=== PATIENT | male | born 1980 | race Two or more races ===

== ENCOUNTER 2024-09-19 18:46 | Inpatient (IN) | payer OTHER ==
[~2024-09-19] VITALS: Ht 160 cm; Wt 84.8 kg
[2024-09-19 19:19] LABS: Basophils # (auto) 0.3 10 ^3/uL (0-0.2); Basophils % (auto) 1.5 % (0.0-2.0); Eosinophils # (auto) 0.6 10 ^3/uL (0-0.8); Eosinophils % (auto) 3.3 % (0.0-7.0); Hematocrit 43.2 % (41.0-53.0); Hemoglobin 13.9 g/dL (13.5-17.5); Lymphocytes # (auto) 1.5 10 ^3/uL (0.4-5.4); Lymphocytes % (auto) 8.7 % (10.0-50.0); Mean Corpuscular Hemoglobin 27.4 pg (28.0-32.0); Mean Corpuscular Hgb Conc. 32.1 g/dL (32.0-36.0); Mean Corpuscular Volume 85.2 fL (80.0-100.0); Monocytes # (auto) 0.9 10 ^3/uL (0-1.3); Monocytes % (auto) 5.2 % (0.0-12.0); Neutrophils % (auto) 81.3 % (37.0-80.0); Platelet Count (auto) 423 10^3/uL (140-450); Red Blood Cells 5.07 10^6/uL (4.5-5.90); Red Cell Distribution Width 17.8 % (11.8-14.3); White Blood Cell 17.3 10^3/uL (4.4-10.8)
--- NOTE | 2024-09-19 19:25 | ED.PDOC ---
History of Present Illness HPI Comments 44 y/o M is BIBA for c/o chest pain that began 3 hours ago, today. He describes it as pressure-like in quality. EMS states on giving the patient NTG en route, with no improvement or relief to his pain. Patient denies any shortness of breath, palpitations, dizziness, lightheadedness, or further associated symptoms or modifiers at this time. Signs were stable at arrival. 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 Past Medical History PAST MEDICAL HISTORY: CKF Surgical History: Denies all surgeries Family History Family History: Reviewed,noncontributory to illness, No family hx of Cancer, No family hx of DM, No family hx of Heart minoo, No family hx of HTN, No family hx ofKidney minoo, No family hx of Liver minoo, No family hx of Lung minoo, No family hx of Stroke Social History Smoker: Non-Smoker Alcohol: Denies ETOH Use Drugs: Denies Drug Use Lives In: Home Constitutional: denies: chills, diaphoresis, fatigue, fever, malaise, sweats, weakness, others EENTM: denies: blurred vision, double vision, ear bleeding, ear discharge, ear drainage, ear pain, ear ringing, eye pain, eye redness, hearing loss, mouth pain, mouth swelling, nasal discharge, nose bleeding, nose congestion, nose pain, photophobia, tearing, throat pain, throat swelling, voice changes, others Respiratory: denies: cough, hemoptysis, orthopnea, SOB at rest, shortness of breath, SOB with excertion, stridor, wheezing, others Cardiovascular: reports: chest pain; denies: dizzy spells, diaphoresis, Dyspnea on exertion, edema, irregular heart beat, left arm pain, lightheadedness, palpitations, PND, syncope, others Gastrointestinal: denies: abdomen distended, abdominal pain, blood streaked bowels, constipated, diarrhea, dysphagia, difficulty swallowing, hematemesis, melena, nausea, poor appetite, poor fluid intake, rectal bleeding, rectal pain, vomiting, others Genitourinary: denies: burning, dysuria, flank pain, frequency, hematuria, incontinence, penile discharge, penile sore, pain, testicle pain, testicle swelling, urgency, others Neurological: denies: dizziness, fainting, headache, left sided numbness, left sided weakness, numbness, paresthesia, pre-existing deficit, right sided numbness, right sided weakness, seizure, speech problems, tingling, tremors, weakness, others Musculoskeletal: denies: back pain, gout, joint pain, joint swelling, muscle pain, muscle stiffness, neck pain, others Integumetry: denies: bruises, change in color, change in hair/nails, dryness, laceration, lesions, lumps, rash, wounds, others Allergic/Immunocompromised: denies: Difficulty Healing, Frequent Infections, Hives, Itching, others Hematologic/Lymphatic: denies: anemia, blood clots, easy bleeding, easy bruising, swollen glands, others Endocrine: denies: excessive hunger, excessive sweating, excessive thirst, excessive urination, flushing, intolerance to cold, intolerance to heat, unexplained weight gain, unexplained weight loss, others Psychiatric: denies: anxiety, bipolar disorder, depression, hopeless, panic disorder, schizophrenia, sleepless, suicidal, others All Other Systems: Reviewed and Negative (as per HPI) Physical Exam General Appearance: Moderate Distress (Moderate distress due to generalized chest pain concerns.), Normal HEENT: Normal ENT Inspection, Pharynx Normal, TMs Normal Neck: Full Range of Motion, Non-Tender, Normal, Normal Inspection Respiratory: Other (Relatively unremarkable auscultation bilateral lung garcia. Possible mild rhonchi appreciated right middle lobe) Cardiovascular: No Edema, No JVD, No Murmur, No Gallop, Normal Peripheral Pulses, Regular Rate/Rhythm Breast Exam: Deferred Gastrointestinal: No Organomegaly, Non Tender, No Pulsatile Mass, Normal Bowel Sounds, Soft Genitalia: Deferred Pelvic: Deferred Rectal: Deferred Extremities: No calf tenderness, Normal capillary refill, Normal inspection, No rmal range of motion, Non-tender, No pedal edema Neurologic: Alert, No Motor Deficits, Normal Affect, Normal Mood, No Sensory Deficits Cerebellar Function: Normal Reflexes: Normal Skin: Dry, Normal Color, Warm Lymphatic: No Adenopathy Was a procedure done? Was a procedure done?: No Differential Dx Considerations may include: OH, PE, ACS, angina, anxiety, musculoskeletal pain, among others X-Ray, Labs, Meds, VS Vital Signs Date Time Temp Pulse Resp B/P (MAP) Pulse Ox O2 Delivery O2 Flow Rate FiO2 09/19/24 23:28 132/53 09/19/24 21:25 97.5 70 18 139/77 (97) 98 97.5 09/19/24 21:25 97 Room Air* 0 21 09/19/24 18:49 97.7 78 18 159/77 (104) 97 97.7 09/19/24 18:48 77 Lab Test 09/19/24 19:48 09/19/24 18:55 Range/Units Troponin I High Sensitivity 8 8 </=54 ng/L White Blood Count 17.3 H 4.4-10.8 10^3/uL Red Blood Count 5.07 4.5-5.90 10^6/uL Hemoglobin 13.9 13.5-17.5 g/dL Hematocrit 43.2 41.0-53.0 % Mean Corpuscular Volume 85.2 80.0-100.0 fL Mean Corpuscular Hemoglobin 27.4 L 28.0-32.0 pg Mean Corpuscular Hemoglobin Concent 32.1 32.0-36.0 g/dL Red Cell Distribution Width 17.8 H 11.8-14.3 % Platelet Count 423 140-450 10^3/uL Mean Platelet Volume 8.4 6.9-10.8 fL Neutrophils (%) (Auto) 81.3 H 37.0-80.0 % Lymphocytes (%) (Auto) 8.7 L 10.0-50.0 % Monocytes (%) (Auto) 5.2 0.0-12.0 % Eosinophils (%) (Auto) 3.3 0.0-7.0 % Basophils (%) (Auto) 1.5 0.0-2.0 % Neutrophils # (Auto) 14.0 H 1.6-8.6 10 ^3/uL Lymphocytes # (Auto) 1.5 0.4-5.4 10 ^3/uL Monocytes # (Auto) 0.9 0-1.3 10 ^3/uL Eosinophils # (Auto) 0.6 0-0.8 10 ^3/uL Basophils # (Auto) 0.3 H 0-0.2 10 ^3/uL Nucleated Red Blood Cells 0.0 % Sodium Level 137 136-145 mmol/L Potassium Level 3.8 3.5-5.1 mmol/L Chloride Level 102 98-107 mmol/L Carbon Dioxide Level 29 20-31 mmol/L Anion Gap 6 5-15 Blood Urea Nitrogen 9 9-23 mg/dL Creatinine 0.59 L 0.700-1.30 mg/dL Glomerular Filtration Rate Calc 124 >90 mL/min BUN/Creatinine Ratio 15.3 10.0-20.0 Serum Glucose 241 H 74-106 mg/dL Calcium Level 9.5 8.7-10.4 mg/dL Total Bilirubin 0.8 0.2-1.0 mg/dL Aspartate Amino Transferase (AST) 17 13-40 U/L Alanine Aminotransferase (ALT) 15 7-40 U/L Alkaline Phosphatase 180 H 46-116 U/L B-Type Natriuretic Peptide 546.66 0-100 pg/mL Total Protein 7.2 5.7-8.2 g/dL Albumin 4.2 3.2-4.8 g/dL Lipase 30 12-53 U/L Plasma/Serum Blood Alcohol < 3.0 <10 mg/dL Current Medications Medications (Trade) Dose Ordered Sig/Evert Route Start Time Stop Time Status Last Admin Furosemide (Lasix Injection) 40 mg ONCE ONCE IV 09/19/24 22:30 09/19/24 22:31 DC 09/19/24 23:28 Sodium Chloride 1,000 ml @ 150 mls/hr Q6H40M ONCE IV 09/19/24 22:30 09/20/24 05:09 09/19/24 23:28 Piperacillin Sod/ Tazobactam Sod 100 ml @ 100 mls/hr ONCE ONCE IV 09/19/24 22:30 09/19/24 23:29 DC 09/19/24 23:29 X-Ray, Labs, Meds, VS Comment All studies performed the ED were evaluated by me personally. Urinalysis was pending at time of this note. Serum laboratories revealed a significant leukocytosis, hyperglycemia, elevated alkaline loss and what appears to be an acute CHF exacerbation. Patient denied any history of CHF. EKG revealed a sinus rhythm with a rate of 77. Possible left atrial enlargement as well as left ventricular hypertrophy. Patient has possible ischemia in diffuse leads. AK interval 148 and QT interval 440. Chest x-ray was unremarkable for any consolidation or intrapulmonary concerns. Patient will be admitted for his CHF concerns as well as currently un-sourced leukocytosis. Time of 1ST Reevaluation: 23:36 Reevaluation 1ST: Improved Consultation: PCP, Cardiology Patient Education/Counseling: Diagnosis, Treatment Family Education/Counseling: Diagnosis, Treatment, No Family Present Departure 1 Departure Time of Disposition: 23:36 Impression: Primary Impression: Acute exacerbation of CHF (congestive heart failure) Additional Impressions: Leukocytosis Hyperglycemia Elevated alkaline phosphatase level Disposition: ADMITTED INPATIENT Condition: Stable Discharged With: Self Critical Care Note Critical Care Time?: No Stability Stability form required: No Heart Score Heart Score: Heart Score Response (Comments) Value History Moderate Suspicious 1 EKG Normal 0 Age <45 0 Risk Factors 1 or 2 risk factors 1 Troponin Normal limit 0 Total 2 I personally scribed for AIDEN ELLIS PAC ([email or web address]) on 09/19/24 at 19:25. Electronically submitted by Aki Santoyo ([email or web address]). AIDEN ELLIS PAC Sep 19, 2024 19:25
[2024-09-19 20:12] LABS: Alanine Aminotransferase 15 U/L (7-40); Albumin 4.2 g/dL (3.2-4.8); Anion Gap 6 (5-15); Aspartate Aminotransferase 17 U/L (13-40); BUN/Creatinine Ratio 15.3 (10.0-20.0); Blood Urea Nitrogen 9 mg/dL (9-23); Calcium 9.5 mg/dL (8.7-10.4); Carbon Dioxide 29 mmol/L (20-31); Chloride 102 mmol/L (98-107); Potassium 3.8 mmol/L (3.5-5.1); Sodium 137 mmol/L (136-145); Total Protein 7.2 g/dL (5.7-8.2)
[2024-09-19 20:13] LABS: Bilirubin, Total 0.8 mg/dL (0.2-1.0)
[2024-09-19 20:14] LABS: Alkaline Phosphatase 180 U/L (46-116); Blood Alcohol < 3.0 mg/dL (<10); Glucose 241 mg/dL (74-106)
[2024-09-19 20:24] LABS: Lipase 30 U/L (12-53)
[2024-09-19] MEDS: HYDROMORPHONE HCL 1 MG/ML INJ IV ONE (20:58)
[2024-09-19 21:25] VITALS: O2SAT 97
--- NOTE | 2024-09-19 23:16 | DVH ---
CHEST RADIOGRAPH Indication: Shortness of breath Technique: Single frontal view of the chest was obtained Comparison: None FINDINGS: Lines and Tubes: None Lungs: Clear Pleura: No effusion. No pneumothorax. Cardiomediastinal contours: Unremarkable Bones: Unremarkable IMPRESSION: Clear lungs.
[2024-09-19] MEDS: FUROSEMIDE 40 MG/4 ML VIAL IV ONE (23:28)
[2024-09-19] MEDS: SODIUM CHLORIDE 0.9% 1,000 ML IV ONE (23:28)
[2024-09-19] MEDS: PIPERACILLIN-TAZOB 3.375GM 100 ML IV ONE (23:29)
[2024-09-20] VITALS (11 sets, daily range): BP systolic 132–165; BP diastolic 53–77; PULSE 72–81; RESP 16–18; TEMP 36.7; O2SAT 93–99
[2024-09-20] MEDS ORDERED: ONDANSETRON HCL 4 MG/2 ML VIAL IV PRN (00:15)
[2024-09-20] MEDS ORDERED: ZOLPIDEM TARTRATE 5 MG TAB PO PRN (00:15)
[2024-09-20] MEDS ORDERED: DEXTROSE (50%) 50ML SYRG IV PRN (00:15)
[2024-09-20] MEDS ORDERED: LORazepam 0.5 MG TAB PO PRN (00:15)
[2024-09-20] MEDS ORDERED: MORPHINE SULFATE 4 MG/ML SYR/VIAL IV PRN (00:15)
[2024-09-20] MEDS ORDERED: NITROGLYCERIN 0.4 MG SL TAB SL PRN (00:15)
[2024-09-20] MEDS ORDERED: ACETAMINOPHEN 325 MG TAB PO PRN (00:15)
[2024-09-20] MEDS ORDERED: IPRATROPIUM BROM 0.5 MG/2.5ML INH SOL NEB PRN (00:30)
--- NOTE | 2024-09-20 00:36 | DVHHP2 ---
History of Present Illness Reason for Visit: chest pain History of Present Illness 44-year-old male with a past medical history of CHF also stated kidney failure and diabetes comes to the ED for evaluation of shortness of breath and chest pain patient states that he has not been on his medication for awhile since he recently moved from [place] but recently started his medication again after was sent up about 2 days ago but noticed that he still can not catch his breath and was feeling pretty weak came into the ED for further evaluation and management we will be admitted for further care Cardiovascular: CHF Pulmonary: COPD Review of Systems Constitutional: Yes: Weakness; No: Fever, Chills, Sweats, Malaise, Other Eyes: No: Pain, Vision change, Conjunctivae inflammation, Eyelid inflammation, Other, Redness ENT: No: Ear pain, Ear discharge, Nose pain, Nose discharge, Nose congestion, Mouth pain, Mouth swelling, Throat pain, Throat swelling, Other Respiratory: Shortness of breath, SOB with excertion; No: Cough, Dry, Wheezing, Hemoptysis, Pleuritic Pain, Sputum, Wheezing, Other Cardiovascular: Chest Pain, Palpitations; No: Orthopnea, Paroxysmal Noc. Dyspnea, Edema, Lt Headedness, Other Gastrointestinal: No: Nausea, Vomiting, Abdominal Pain, Diarrhea, Constipation, Melena, Hematochezia, Other Genitourinary: No Dysuria, No Frequency, No Incontinence, No Hematuria, No Retention, No Other Musculoskeletal: No: other, neck pain, shoulder pain, arm pain, back pain, hand pain, leg pain, foot pain Skin: No: Rash, Lesions, Jaundice, Bruising, Other Neurological: Weakness; No: Numbness, Incoordination, Change in speech, Confusion, Seizures, Other Medications Current Medications Medications Dose Ordered Sig/Evert Route Start Time Stop Time Status Last Admin Dose Admin Aspirin 81 mg DAILY PO 09/20/24 10:00 UNV Atorvastatin Calcium 40 mg HS PO 09/20/24 22:00 UNV Carvedilol 6.25 mg Q12HR PO 09/20/24 10:00 UNV Losartan Potassium 12.5 mg DAILY PO 09/20/24 10:00 UNV Morphine Sulfate 2 mg Q30MP PRN IV 09/20/24 00:15 UNV Acetaminophen 650 mg Q6HP PRN PO 09/20/24 00:15 UNV Zolpidem Tartrate 5 mg QHSP PRN PO 09/20/24 00:15 UNV Lorazepam 0.5 mg Q6HP PRN PO 09/20/24 00:15 UNV Docusate Sodium 100 mg DAILY PO 09/20/24 10:00 UNV Enoxaparin Sodium 60 mg Q12HR SC 09/20/24 10:00 UNV Nitroglycerin 0.4 mg Q5MINP PRN SL 09/20/24 00:15 UNV Ondansetron HCl 4 mg Q4HP PRN IV 09/20/24 00:15 UNV Diagnostic Test (Pha) 1 strip ACHS 09/20/24 07:00 UNV Insulin Human Regular HS SC 09/20/24 22:00 UNV Insulin Human Regular AC SC 09/20/24 07:00 UNV Dextrose 50 ml UD PRN IV 09/20/24 00:15 UNV Furosemide 40 mg DAILY IV 09/20/24 10:00 UNV Albuterol 2.5 mg Q4HPRN NEB 09/20/24 02:00 UNV Ipratropium [place] 0.5 mg Q4HP PRN NEB 09/20/24 00:30 UNV Exam Vital Signs Vital Signs Date Time Temp Pulse Resp B/P (MAP) Pulse Ox O2 Delivery O2 Flow Rate FiO2 09/19/24 23:28 132/53 09/19/24 21:25 97.5 70 18 98 97.5 09/19/24 21:25 Room Air* 0 21 Exam General Appearance: Moderate Distress (Moderate distress due to generalized chest pain concerns.), Normal HEENT: Normal ENT Inspection, Pharynx Normal, TMs Normal Neck: Full Range of Motion, Non-Tender, Normal, Normal Inspection Respiratory: Other (Relatively unremarkable auscultation bilateral lung garcia. Possible mild rhonchi appreciated right middle lobe) Cardiovascular: No Edema, No JVD, No Murmur, No Gallop, Normal Peripheral Pulses, Regular Rate/Rhythm Breast Exam: Deferred Gastrointestinal: No Organomegaly, Non Tender, No Pulsatile Mass, Normal Bowel Sounds, Soft Genitalia: Deferred Pelvic: Deferred Rectal: Deferred Extremities: No calf tenderness, Normal capillary refill, Normal inspection, Normal range of motion, Non-tender, No pedal edema Neurologic: Alert, No Motor Deficits, Normal Affect, Normal Mood, No Sensory Deficits Cerebellar Function: Normal Reflexes: Normal Skin: Dry, Normal Color, Warm Lymphatic: No Adenopathy Labs/Xrays Labs Test 09/19/24 19:48 09/19/24 18:55 Range/Units Troponin I High Sensitivity 8 </=54 ng/L White Blood Count 17.3 H 4.4-10.8 10^3/uL Red Blood Count 5.07 4.5-5.90 10^6/uL Hemoglobin 13.9 13.5-17.5 g/dL Hematocrit 43.2 41.0-53.0 % Mean Corpuscular Volume 85.2 80.0-100.0 fL Mean Corpuscular Hemoglobin 27.4 L 28.0-32.0 pg Mean Corpuscular Hemoglobin Concent 32.1 32.0-36.0 g/dL Red Cell Distribution Width 17.8 H 11.8-14.3 % Platelet Count 423 140-450 10^3/uL Mean Platelet Volume 8.4 6.9-10.8 fL Neutrophils (%) (Auto) 81.3 H 37.0-80.0 % Lymphocytes (%) (Auto) 8.7 L 10.0-50.0 % Monocytes (%) (Auto) 5.2 0.0-12.0 % Eosinophils (%) (Auto) 3.3 0.0-7.0 % Basophils (%) (Auto) 1.5 0.0-2.0 % Neutrophils # (Auto) 14.0 H 1.6-8.6 10 ^3/uL Lymphocytes # (Auto) 1.5 0.4-5.4 10 ^3/uL Monocytes # (Auto) 0.9 0-1.3 10 ^3/uL Eosinophils # (Auto) 0.6 0-0.8 10 ^3/uL Basophils # (Auto) 0.3 H 0-0.2 10 ^3/uL Nucleated Red Blood Cells 0.0 % Sodium Level 137 136-145 mmol/L Potassium Level 3.8 3.5-5.1 mmol/L Chloride Level 102 98-107 mmol/L Carbon Dioxide Level 29 20-31 mmol/L Anion Gap 6 5-15 Blood Urea Nitrogen 9 9-23 mg/dL Creatinine 0.59 L 0.700-1.30 mg/dL Glomerular Filtration Rate Calc 124 >90 mL/min BUN/Creatinine Ratio 15.3 10.0-20.0 Serum Glucose 241 H 74-106 mg/dL Calcium Level 9.5 8.7-10.4 mg/dL Total Bilirubin 0.8 0.2-1.0 mg/dL Aspartate Amino Transferase (AST) 17 13-40 U/L Alanine Aminotransferase (ALT) 15 7-40 U/L Alkaline Phosphatase 180 H 46-116 U/L B-Type Natriuretic Peptide 546.66 0-100 pg/mL Total Protein 7.2 5.7-8.2 g/dL Albumin 4.2 3.2-4.8 g/dL Lipase 30 12-53 U/L Plasma/Serum Blood Alcohol < 3.0 <10 mg/dL Assessment/Plan Assessment/Plan Admit to telemetry Acute on chronic CHF exacerbation Chest pain protocol CHF management IV Lasix Suspected pneumonia P.r.n. breathing treatments IV antibiotics started in the ED we will continue Hyperglycemia with suspected diabetes Insulin sliding scale protocol Plan discussed with: Patient My Orders Orders - FLORY OBREGON MD Procedure Category Date Status Time Admit ADMIT 09/20/24 Transmitted 00:13 Code Status CODE 09/20/24 Transmitted 00:13 Cardiac DIET 09/20/24 Transmitted Diet-2gna,Lofat,Lochol Breakfast Aspirin Tablet PHA 09/20/24 Logged 10:00 Atorvastatin (Lipitor) PHA 09/20/24 Logged 22:00 Carvedilol Tablet PHA 09/20/24 Logged (Coreg Tablet) 10:00 Losartan Tablet PHA 09/20/24 Logged (Cozaar Tablet) 10:00 Morphine Sulfate PHA 09/20/24 Logged Injection 00:15 Acetaminophen Tablet PHA 09/20/24 Logged (Tylenol Tablet) 00:15 Zolpidem Tartrate PHA 09/20/24 Logged (Ambien) 00:15 Lorazepam Tablet PHA 09/20/24 Logged (Ativan Tablet) 00:15 Docusate Sodium PHA 09/20/24 Logged Capsule (Colace 10:00 Complete Blood Count LAB 09/21/24 Verified 04:00 Basic Metabolic Panel LAB 09/21/24 Verified 04:00 Echo 2d Mode Cardiac US 09/20/24 Logged DOP 00:13 Enoxaparin Sodium PHA 09/20/24 Logged (Lovenox) 10:00 Nitroglycerin PHA 09/20/24 Logged Sublingual (Ntrostat 00:15 Ondansetron Hcl PHA 09/20/24 Logged (Zofran) 00:15 Electrocardigram EKG 09/20/24 Logged 00:13 Alum & Mag PHA 09/20/24 Logged Hydrox-Simethicone 00:15 Troponin-I Hs LAB 09/20/24 Logged 00:13 Cardiac [place] 09/20/24 In Process Rehabilitation - Outpa Stat Ekg For Chest [place] 09/20/24 In Process Pain 00:13 Notify Md Of Changes [place] 09/20/24 In Process From Base 00:13 Vulcanizer Rubber Plate For [place] 09/20/24 In Process 24 Hours 00:13 Oxygen By Nasal RT 09/20/24 Transmitted Cannula 00:13 Troponin-I Hs LAB 09/20/24 Logged 01:13 Troponin-I Hs LAB 09/20/24 Logged 03:13 Glucose Blood PHA 09/20/24 Logged (Accu-Chek Comfort 07:00 Insulin R (Human) PHA 09/20/24 Logged (Insulin R) 22:00 Insulin R (Human) PHA 09/20/24 Logged (Insulin R) 07:00 Dextrose 50% Syringe PHA 09/20/24 Logged 00:15 Furosemide Injection PHA 09/20/24 Logged (Lasix Injection) 10:00 Albuterol Medneb PHA 09/20/24 Logged (Ventolin Medneb) 02:00 Ipratropium Medneb PHA 09/20/24 Logged (Atrovent Medneb) 00:30 Med Neb Initial RT 09/20/24 Logged Treatment 00:19 Date of Service: Sep 20, 2024 Billing Provider: FLORY OBREGON MD Common Visit Codes: [id number] INP/OBS CARE (HIGH) FLORY OBREGON MD Sep 20, 2024 00:36
[2024-09-20 00:52] LABS: Urine Bacteria None Seen /hpf (None Seen)
[2024-09-20 01:11] LABS: Urine Blood Negative /uL (Negative); Urine Clarity Clear (Clear); Urine Color Light-Yellow (Yellow); Urine Protein, UAD Negative (Negative); Urine Specific Gravity 1.013 (1.001-1.035); Urine Squamous Epithelial Cell None Seen /hpf (<5); Urine Urobilinogen Normal (Negative); Urine WBC < 1 /HPF (0-3); Urine pH 6.5 (5.0-9.0)
[2024-09-20 01:25] LABS: Amphetamine Screen, Urine Neg (NEGATIVE); Barbiturate Scree,Urine Neg (NEGATIVE); Benzodiazephine Screen, Urine Neg (NEGATIVE); Cannabinoid Screen, Urine Pos (NEGATIVE); Cocaine Screen, Urine Neg (NEGATIVE); Opiate Scree,Urine Neg (NEGATIVE); Phencyclidine Screen, Urine Neg (NEGATIVE)
[2024-09-20] MEDS ORDERED: ALBUTEROL SULF 2.5 MG/0.5ML(0.5%) NEB SOLN NEB SCH (02:00)
[2024-09-20] MEDS: MAALOX PLUS or MAALOX 30 ML PO ONE (03:59)
[2024-09-20] MEDS ORDERED: ALBUTEROL SULF 2.5 MG/0.5ML(0.5%) NEB SOLN NEB PRN (04:15)
[2024-09-20] MEDS: ACCU-CHEK COMFORT CURVE STRIP VI SCH (07:00)
[2024-09-20] MEDS: FUROSEMIDE 40 MG/4 ML VIAL IV SCH (08:35)
[2024-09-20] MEDS: LOSARTAN POTASSIUM 25 MG TAB PO SCH (08:35)
[2024-09-20] MEDS: CARVEDILOL 3.125 MG TAB PO SCH (08:35)
[2024-09-20] MEDS: InsuLIN REG 1unit/0.01ml Soln (100units/ml) SC SCH (08:42)
[2024-09-20] MEDS: DOCUSATE SOD 100 MG CAP PO SCH (08:42)
[2024-09-20] MEDS: ASPirin 81 mg TAB PO SCH (08:42)
[2024-09-20] MEDS: ENOXAPARIN SOD 80 MG/0.8ML SYRINGE SC SCH (11:06)
--- NOTE | 2024-09-20 14:22 | DVHSR ---
APPROVED REPORT EXAM: Two-dimensional and M-mode echocardiogram with Doppler and color Doppler. Blood Pressure: 165/63 mmHg INDICATION Chest Pain RISK FACTORS Obesity: Height: 5' 3", Weight: 186 DIMENSIONS LVDd4.9 (3.8-5.7cm)LA (2D)4.7 (1.9-4.0cm)Aortic Root3.0 (2.0-3.7cm) LVDs3.8 (2.5-4.0cm)LA (MM) (1.9-4.0cm)Aortic Cusp Exc1.8 (1.5-2.0cm) EF (%) 50.0 (55-70%)Rt. Atrium4.0 (1.9-4.0cm)Asc. Aorta cm IVSd1.2 (0.7-1.1cm)RV (D) (1.8-2.4cm) PWd1.4 (0.7-1.1cm) Mitral Valve MitralMitral Stenosis E wave1.00m/sMV Mean GR.mmHg A wave0.70m/sMV Peak GR.mmHg E/A ratio1.42D MVAcm2 Aortic Valve Aortic ValveAortic Stenosis V10.90m/Rachelle Mean GR.4mmHg V21.40m/Rachelle Peak GR.8mmHg LVOT Diameter2.2 (1.8-2.4cm)Doppler AVA2.44cm2 Pulmonic Valve V20.60m/s Tricuspid Valve TR Velocity2.30m/s [id number] Conclusion LV EF IS 55% NORMAL VALVES NORMAL RV FUNCTION NO EFFUSION
[2024-09-20] MEDS ORDERED: AUG875T PO (18:12)
--- NOTE | 2024-09-20 18:15 | DVHDS2 ---
Discharge Summary Date of Admission Sep 20, 2024 at 00:13 Date of Discharge: Sep 20, 2024 Labs/Diagnostic Data: Laboratory Results Test 09/20/24 17:03 09/20/24 15:33 09/20/24 03:26 09/20/24 00:37 POC Glucose 152 mg/dl (70-106) Hemoglobin A1c 8.9 % A1C (<5.7) Troponin I High Sensitivity 12 ng/L (</=54) Urine Color Light-yellow (Yellow) Urine Clarity Clear (Clear) Urine pH 6.5 (5.0-9.0) Urine Specific [place] 1.013 (1.001-1.035) Urine Protein Negative (Negative) Urine Ketones Trace (Negative) Urine Blood Negative /uL (Negative) Urine Nitrite Negative (Negative) Urine Bilirubin Negative (Negative) Urine Urobilinogen Normal mg/dL (Negative) Urine Leukocyte Esterase Negative /uL (Negative) Urine RBC 1 /hpf (0 - 3) Urine Microscopic WBC < 1 /HPF (0-3) Urine Squamous Epithelial Cells None seen /hpf (<5) Urine Bacteria None seen /hpf (None Seen) Urine Glucose 4+ mg/dL (Normal) Urine Opiates Screen Neg (NEGATIVE) Urine Fentanyl Screen Neg (NEGATIVE) Urine Barbiturates Screen Neg (NEGATIVE) Urine Phencyclidine Screen Neg (NEGATIVE) Urine Amphetamines Screen Neg (NEGATIVE) Urine Benzodiazepines Screen Neg (NEGATIVE) Urine Cocaine Screen Neg (NEGATIVE) Urine Cannabinoids Screen Pos (NEGATIVE) Test 09/19/24 18:55 White Blood Count 17.3 10^3/uL (4.4-10.8) Red Blood Count 5.07 10^6/uL (4.5-5.90) Hemoglobin 13.9 g/dL (13.5-17.5) Hematocrit 43.2 % (41.0-53.0) Mean Corpuscular Volume 85.2 fL (80.0-100.0) Mean Corpuscular Hemoglobin 27.4 pg (28.0-32.0) Mean Corpuscular Hemoglobin Concent 32.1 g/dL (32.0-36.0) Red Cell Distribution Width 17.8 % (11.8-14.3) Platelet Count 423 10^3/uL (140-450) Mean Platelet Volume 8.4 fL (6.9-10.8) Neutrophils (%) (Auto) 81.3 % (37.0-80.0) Lymphocytes (%) (Auto) 8.7 % (10.0-50.0) Monocytes (%) (Auto) 5.2 % (0.0-12.0) Eosinophils (%) (Auto) 3.3 % (0.0-7.0) Basophils (%) (Auto) 1.5 % (0.0-2.0) Neutrophils # (Auto) 14.0 10 ^3/uL (1.6-8.6) Lymphocytes # (Auto) 1.5 10 ^3/uL (0.4-5.4) Monocytes # (Auto) 0.9 10 ^3/uL (0-1.3) Eosinophils # (Auto) 0.6 10 ^3/uL (0-0.8) Basophils # (Auto) 0.3 10 ^3/uL (0-0.2) Nucleated Red Blood Cells 0.0 % Sodium Level 137 mmol/L (136-145) Potassium Level 3.8 mmol/L (3.5-5.1) Chloride Level 102 mmol/L (98-107) Carbon Dioxide Level 29 mmol/L (20-31) Anion Gap 6 (5-15) Blood Urea Nitrogen 9 mg/dL (9-23) Creatinine 0.59 mg/dL (0.700-1.30) Glomerular Filtration Rate Calc 124 mL/min (>90) BUN/Creatinine Ratio 15.3 (10.0-20.0) Serum Glucose 241 mg/dL (74-106) Calcium Level 9.5 mg/dL (8.7-10.4) Total Bilirubin 0.8 mg/dL (0.2-1.0) Aspartate Amino Transferase (AST) 17 U/L (13-40) Alanine Aminotransferase (ALT) 15 U/L (7-40) Alkaline Phosphatase 180 U/L (46-116) B-Type Natriuretic Peptide 546.66 pg/mL (0-100) Total Protein 7.2 g/dL (5.7-8.2) Albumin 4.2 g/dL (3.2-4.8) Lipase 30 U/L (12-53) Plasma/Serum Blood Alcohol < 3.0 mg/dL (<10) Other Laboratory Tests 09/19/24 18:55 Brief Hx & Hospital Course: HPI:44-year-old male with a past medical history of CHF also stated kidney failure and diabetes comes to the ED for evaluation of shortness of breath and chest pain patient states that he has not been on his medication for awhile since he recently moved from [place] but recently started his medication again after was sent up about 2 days ago but noticed that he still can not catch his breath and was feeling pretty weak came into the ED for further evaluation and management we will be admitted for further care Summary: Patient presented with shortness of Breath. Recently he had been out of his medications for 3 days but got a refill the day of presentation. On initial presentation in ED, patient was short of breath and requiring oxygen up to 3 L, leukocytosis 17.3, neutrophilia 81% elevated. CMP largely unremarkable. UA shows glucosuria and UDS has cannabis positive, alcohol negative. Chest is shows some possible pulmonary vascular congestion, troponins negative x3, BNP mildly elevated to 500s. Lipase negative. Patient admitted for acute CHF exacerbation and diuresis was started with IV Lasix. Patient has rapid improvement by day 2. On day 2 evaluation patient has no rales, no pedal edema, patient was ambulating, tolerating p.o., normal bowel movement pattern. Patient was stable for discharge as per plan below. Diagnosis: Acute CHF exacerbation, diastolic likely Chest pain, ACS ruled out Acute pneumonia, Gram-negative Gram-positive likely viral upper respiratory syndrome Leukocytosis Neutrophilia Hypertension poor controlled Cannabis use diabetes with hyperglycemia Diabetic neuropathy Glucosuria Discharge plan: -Continue home medications -Strict medical compliance -Strict dietary compliance -Take Augmentin 875 mg twice daily for 5 days -Conservative measures for viral syndrome (hot fluids, [id number] Tylenol based cough and cold syrups, avoid NSAIDs/ibuprofen/Motrin) -Follow up with PCP to review discharge Condition at Discharge: Fair Final Diagnosis/Problems List Acute CHF exacerbation, diastolic likely Chest pain, ACS ruled out Acute pneumonia, Gram-negative Gram-positive likely viral upper respiratory syndrome Leukocytosis Neutrophilia Hypertension poor controlled Cannabis use diabetes with hyperglycemia Diabetic neuropathy Glucosuria Discharge Disposition: Home Discharge Instruct/Medications Diet: Consistent carbohydrate Activity: No Restrictions, As Tolerated Follow Up/Referral: pcp Medications: below Discharge Statement: "Patient was advised to return to the ER or call 911 if any headaches, dizziness, shortness of breath, chest pain, abdominal pain, bleeding, fevers, or worsening of medical condition. Patient was counseled about treatment plan, medications, possible side effects, patientverbalized understanding. All questions were answered to the best of my ability. This discharge took greater then 30 minutes in planning, reviewing documentation, counseling the patient, and discussing with other team members." Date of Service: Sep 20, 2024 Billing Provider: TAO CARRINGTON MD Common Visit Codes: [id number] DISCH DAY >30min TAO CARRINGTON MD Sep 20, 2024 18:15
[2024-09-20] MEDS ORDERED: InsuLIN REG 1unit/0.01ml Soln (100units/ml) SC SCH (22:00)
[2024-09-20] MEDS ORDERED: ATORVASTATIN 20 MG TAB PO SCH (22:00)
--- NOTE | 2024-09-22 13:28 | ECG ---
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
== END 2024-09-20 19:33 | disposition home or self-care (01) | DRG 133 ==
LOC: ER 18:46 → EDBD 18:46 → OVERFLOW 09-20 00:13 → TELE-WESTW 09-20 07:04
PROVIDERS: ADMIT Hospitalist; ATTEND Hospitalist
DX: J96.01 Acute respiratory failure with hypoxia (principal); I50.33 Acute on chronic diastolic (congestive) heart failure; J15.69 Pneumonia due to other Gram-negative bacteria; E11.40 Type 2 diabetes mellitus with diabetic neuropathy, unspecified; J44.0 Chronic obstructive pulmonary disease with (acute) lower respiratory infection; J15.9 Unspecified bacterial pneumonia; I11.0 Hypertensive heart disease with heart failure; D72.829 Elevated white blood cell count, unspecified; E11.65 Type 2 diabetes mellitus with hyperglycemia; R74.8 Abnormal levels of other serum enzymes; R81 Glycosuria; F12.90 Cannabis use, unspecified, uncomplicated
CPT/HCPCS: 36415; 71045; 80053; 80307; 80320; 81001; 82962; 83036; 83690; 83880; 84484; 85025; 93005; 93306; 96365; 96375; G0378; J1815; J2543

== ENCOUNTER 2024-09-25 08:18 | Emergency (ER) | payer OTHER ==
[~2024-09-25] VITALS: Ht 160 cm; Wt 84.7 kg
[~2024-09-25 08:18] MED LIST: AUG875T PO
[2024-09-25 08:35] VITALS: BP 183/78; PULSE 78; RESP 18; TEMP 98.7; O2SAT 98
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
[2024-09-25] MEDS: HYDROcodone-ACET 10/325MG TAB PO ONE (09:22)
--- NOTE | 2024-09-25 09:41 | DVH ---
INDICATION: trauma COMPARISON: None TECHNIQUE: 4 views of the cervical spine were obtained. FINDINGS: Moderate multilevel degenerative disc disease of the cervical spine. Straightening of the cervical s pine. No acute fracture, vertebral compression deformity or aggressive osseous lesions. The imaged lung apices are unremarkable. IMPRESSION: No acute fracture.
--- NOTE | 2024-09-25 09:42 | DVH ---
CLINICAL INDICATION: Trauma TECHNIQUE: 3 radiographic views of the left shoulder were obtained. Comparison: None FINDINGS/IMPRESSION: There is no evidence of acute fracture or dislocation. Severe osteoarthrosis of the left acromioclavicular joint. Moderate osteoarthrosis of the left glenoh umeral joint.
--- NOTE | 2024-09-25 09:42 | DVH ---
INDICATION: Trauma COMPARISON: None TECHNIQUE: 3 views of the lumbar spine were obtained. FINDINGS: The lumbar vertebral alignment is normal. Severe multilevel degenerative disc disease of the lumbosacral spine No acute fracture, vertebral compression deformity or aggressive osseous lesions. The paravertebral soft tissues are grossly unremarkable. IMPRESSION: No acute fracture.
[2024-09-25] MEDS ORDERED: ACET-1080 PO (09:50)
== END 2024-09-25 09:51 | disposition home or self-care (01) ==
LOC: ER 08:18
DX: S16.1XXA Strain of muscle, fascia and tendon at neck level, initial encounter (principal); S39.012A Strain of muscle, fascia and tendon of lower back, initial encounter; S46.912A Strain of unspecified muscle, fascia and tendon at shoulder and upper arm level, left arm, initial encounter; I12.9 Hypertensive chronic kidney disease with stage 1 through stage 4 chronic kidney disease, or unspecified chronic kidney disease; N18.9 Chronic kidney disease, unspecified; V29.91XA Electric (assisted) bicycle rider (driver) (passenger) injured in unspecified traffic accident, initial encounter; Y93.89 Activity, other specified; Y92.89 Other specified places as the place of occurrence of the external cause; Y99.8 Other external cause status
CPT/HCPCS: 72040; 72100; 73030; 82947; 82962